=== PATIENT | male | born 1970 | race Caucasian/White ===

== ENCOUNTER 2023-12-12 14:21 | Emergency (ER) | payer OTHER, BC, SELFPAY ==
[2023-12-12] VITALS (12 sets, daily range): BP systolic 100–144; BP diastolic 68–107; PULSE 76–88; RESP 14–22; TEMP 36.1–36.7; O2SAT 95–98; BMI 27.7
--- NOTE | 2023-12-12 14:28 | CRLHL7_ITS ---
For Patients: As a result of the Century Cures Act, medical imaging exams and procedure reports are released immediately into your electronic medical record. You may view this report before your referring provider. If you have questions, please contact your health care provider. Indication: heavy beam fell on him ,trauma Technique: Right knee 2 views. Comparison: None. Impression: Small knee effusion. No evidence of fracture. Query mild lateral subluxation of patella. Recommend clinical correlation. Dictated by Burt Salas MD @ 12/12/2023 3:53:27 PM (Electronically Signed)
--- NOTE | 2023-12-12 14:28 | CRLHL7_ITS ---
For Patients: As a result of the Cures Act, medical imaging exams and procedure reports are released immediately into your electronic medical record. You may view this report before your referring provider. If you have questions, please contact your health care provider. Indication: heavy beam fell on him, trauma Technique: Right foot 3 views. Comparison: None. Findings: Bones: Alignment is normal. No fractures or bone lesions. Joint spaces: Unremarkable. Soft tissues: Unremarkable. Impression: No evidence of fracture. Dictated by Burt Salas MD @ 12/12/2023 3:56:36 PM (Electronically Signed)
--- NOTE | 2023-12-12 14:28 | CRLHL7_ITS ---
For Patients: As a result of the Century Cures Act, medical imaging exams and procedure reports are released immediately into your electronic medical record. You may view this report before your referring provider. If you have questions, please contact your health care provider. INDICATION: Trauma. TECHNIQUE: CT head without contrast. COMPARISON: None. FINDINGS: CSF spaces: Within normal limits for age. Brain parenchyma and extra-axial spaces: The jacinto-white differentiation is normal. No sign of mass, hemorrhage, or midline shift. No extra-axial fluid collection. Skull base and calvarium: The visualized paranasal sinuses and mastoid air cells demonstrate no acute or significant findings. The visualized orbits are grossly unremarkable. No skull fractures. IMPRESSION: No acute intracranial abnormality. Please note that all CT scans at this facility use dose modulation, iterative reconstruction, and/or weight-based dosing when appropriate to reduce radiation dose to as low as reasonably achievable. Dictated by Pecry Hernandez MD @ 12/12/2023 3:28:55 PM (Electronically Signed)
--- NOTE | 2023-12-12 14:28 | CRLHL7_ITS ---
For Patients: As a result of the Cures Act, medical imaging exams and procedure reports are released immediately into your electronic medical record. You may view this report before your referring provider. If you have questions, please contact your health care provider. Indication: heavy beam fell on him ,trauma Technique: Right hand 3 views. Comparison: None. Impression: Suboptimal evaluation of the mid and distal phalanges due to incomplete extension and superimposed osseous/soft tissue structures. Tiny radiopaque density projecting near the palmar aspect of the 3rd PIP joint which may represent a tiny avulsed fracture fragment or radiopaque foreign body. Otherwise, there is no discrete evidence of fracture given limitations. Dictated by Burt Salas MD @ 12/12/2023 3:59:47 PM (Electronically Signed)
--- NOTE | 2023-12-12 14:28 | CRLHL7_ITS ---
For Patients: As a result of the Century Cures Act, medical imaging exams and procedure reports are released immediately into your electronic medical record. You may view this report before your referring provider. If you have questions, please contact your health care provider. INDICATION: Heavy beam fell on him, trauma. TECHNIQUE: Right ankle 3 views. COMPARISON: None. FINDINGS: There is suboptimal positioning on all three views which limits evaluation. No definite acute fracture or dislocation. Small sclerotic lesion in the distal tibia likely represents a bone island. Achilles calcaneal spur. Soft tissues are unremarkable. IMPRESSION: Limited exam due to suboptimal positioning. No definite acute findings. Dictated by Shaina Bender MD @ 12/12/2023 5:34:20 PM (Electronically Signed)
--- NOTE | 2023-12-12 14:28 | CRLHL7_ITS ---
For Patients: As a result of the Cures Act, medical imaging exams and procedure reports are released immediately into your electronic medical record. You may view this report before your referring provider. If you have questions, please contact your health care provider. INDICATION: Trauma. TECHNIQUE: CT cervical spine without contrast. COMPARISON: None. FINDINGS: Vertebrae: Alignment is normal. There are no fractures or suspicious bony lesions. Discs and facet joints: There are diffuse degenerative changes in the disc spaces and facet joints. Extraspinal findings: Paraspinous soft tissues are unremarkable. IMPRESSION: 1. No sign of acute injury. 2. Multilevel degenerative spondylosis. Please note that all CT scans at this facility use dose modulation, iterative reconstruction, and/or weight-based dosing when appropriate to reduce radiation dose to as low as reasonably achievable. Dictated by Percy Hernandez MD @ 12/12/2023 3:32:33 PM (Electronically Signed)
--- NOTE | 2023-12-12 14:30 | CRLHL7_ITS ---
For Patients: As a result of the 21st Century Cures Act, medical imaging exams and procedure reports are released immediately into your electronic medical record. You may view this report before your referring provider. If you have questions, please contact your health care provider. Indication: Heavy beam fell on him Technique: Volumetric multidetector CT images of the chest, abdomen, and pelvis were obtained after the administration of intravenous contrast. 99 cc Isovue 370 low osmolar intravenous contrast Comparison: None available. FINDINGS: CHEST The thoracic inlet is unremarkable. The thyroid gland is within normal limits. The thoracic aorta is nonaneurysmal. There is no filling defect to suggest pulmonary embolus. There is no mediastinal, hilar, or axillary adenopathy. There is basilar atelectasis and parenchymal scar with moderate paraseptal emphysematous change within the upper lobes. There is no evidence of dense consolidation, pleural effusion or pneumothorax. There is a mildly comminuted fracture of the mid right clavicle. The remaining thoracic osseous structures are otherwise grossly intact. There is a mild compression fracture of the superior T12 endplate. The remaining thoracic vertebral bodies are grossly maintained. ABDOMEN AND PELVIS The liver is mildly enlarged with hepatomegaly and hepatic steatosis. Cystic changes of the right liver are identified. The spleen is normal in attenuation and size. There is prior cholecystectomy. There is no intrahepatic or common ductal dilatation. The stomach and duodenum are grossly unremarkable. The pancreas is normal in enhancement without significant atrophy. The adrenal glands are unremarkable without evidence of adenoma. The kidneys are preserved and corticomedullary differentiation. There is no hydronephrosis or radiopaque calculus. There is a moderate amount of intracolonic stool. There is minimal distal colonic diverticulosis. The small bowel is nondilated. The appendix is unremarkable without significant inflammatory change. The abdominal aorta is nonaneurysmal with its. The remaining solid pelvic viscera are otherwise grossly unremarkable. There is no pathologically enlarged epigastric, mesenteric, retroperitoneal, or pelvic sidewall lymph node. There is a small fat containing umbilical hernia. There is no free air or free fluid. There is fusion of the bilateral sacroiliac joints consistent with sacroiliitis. The femoral heads are well seated in the acetabula. No evidence of displaced pelvic osseous injury. The lumbar vertebral body heights are grossly maintained with [id number] degenerative disc disease. Impression: 1. There is basilar atelectasis and parenchymal scar with moderate biapical paraseptal emphysematous changes and pleural thickening. 2. Comminuted fracture of the right clavicle as well as mild compression fracture of the superior T12 endplate. No other acute traumatic injuries of the chest abdomen or pelvis are appreciated. 3. No acute intra-abdominal abnormality. Please note that all CT scans at this facility use dose modulation, iterative reconstruction, and/or weight-based dosing when appropriate to reduce radiation dose to as low as reasonably achievable. Dictated by Grayson Guillen MD @ 12/12/2023 3:34:15 PM (Electronically Signed)
--- NOTE | 2023-12-12 14:43 | ED_ITS ---
HPI - General Adult General Date Seen: 12/12/23 Chief complaint: Extremity Pain/Injury, Lower Stated complaint: R leg trauma Time Seen by Provider: 12/12/23 14:27 Source: patient and EMS Mode of arrival: EMS Limitations: no limitations History of Present Illness HPI narrative: Patient is a 53-year-old male with no pertinent medical problems presenting to emergency department after a large stable being fell on him. 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 Lateral the right leg causing fall backwards hitting his head. He was wearing his hard hat. Was given ketamine and fentanyl for pain and arrived. EMS states his vital signs were stable for them. He is the A&Ox4 with them also. This occurred while at work. Currently complaining about right knee pain and right clavicular pain. There is notable laceration to his right hand. He has also noticed some mild pain to the right hip, foot, ankle. Denies a headache or neck pain. denies fevers, chills, chest pain, shortness of breath, abdominal pain, vision changes, weakness. Related Data Home Medications Medication Instructions Recorded Confirmed No Known Home Medications 12/12/23 12/12/23 Allergies Allergy/AdvReac Type Severity Reaction Status Date / Time No Known Drug Allergies Allergy Verified 12/12/23 14:34 [facility] Social History Smoking Status: Current every day smoker What tobacco products do you use: cigarettes Smoking packs per day: 1.5 Smoking cigarettes per day: 30.0 Do you use any of these nicotine containing products: None Second hand tobacco smoke exposure: No How often do you have a drink containing alcohol: monthly or less AUDIT-C Alcohol total score: 1 Non-prescribed substance use: marijuana (any form) Non-prescribed substance use details: pt takes approx one cbd gummy at night for sleep service: No Exam Narrative: Exam Narrative: Const: Well-nourished, Well-developed, in moderate distress Eyes: PERRL, no conjunctival injection, and symmetrical lids HENT: Atraumatic external nose and ears. Moist mucous membranes. Neck: Symmetric, trachea midline, No thyromegaly. CVS: RRR, No murmurs or gallops. Peripheral pulses 2+ and equal in all extremities RESP: Unlabored respiratory effort. Clear to auscultation bilaterally. GI: Nontender/Nondistended, No rebound or guarding. MSK:Extremities w/o deformity, for decreased range of motion to right knee and ankle secondary to pain. Tenderness noted to midportion of right clavicle, right wrist, mild tenderness right hip a.m. foot, moderate tenderness to right knee and ankle. With no midline neck tenderness. No tenderness to chest wall, no midline spine tenderness Skin: Warm, Dry. Large laceration to the webspace between the thumb and index finger on right hand. Abrasion noted above right collarbone Neuro: Normal Muscle tone, No focal neurological deficits. GCS 15 Psych: Awake, Alert, & Oriented x3. Appropriate mood and affect. Const: Vital Signs, click to edit/add: Vital Signs - 24 hr 12/12/23 14:25 12/12/23 14:25 12/12/23 14:31 Temperature 97.0 F L Pulse Rate [Pulse Oximeter] 76 Pulse Rate [Right Pulse Oximeter] 79 78 Respiratory Rate 18 18 Blood Pressure [Ri ght Upper Arm] 129/82 107/68 Pulse Oximetry 96 95 [facility] Room Air 12/12/23 14:31 12/12/23 14:40 12/12/23 15:25 Temperature Pulse Rate [Pulse Oximeter] Pulse Rate [Right Pulse Oximeter] 77 78 82 Respiratory Rate 14 16 22 Blood Pressure [Ri ght Upper Arm] 125/82 110/84 134/95 H Pulse Oximetry 97 97 97 [facility] Room Air Room Air 12/12/23 16:40 12/12/23 17:00 12/12/23 17:30 Temperature Pulse Rate [Pulse Oximeter] Pulse Rate [Right Pulse Oximeter] 80 80 86 Respiratory Rate 18 19 17 Blood Pressure [Ri ght Upper Arm] 125/87 100/76 144/97 H Pulse Oximetry 97 97 97 Oxygen Delivery Ak [facility]od Room Air Room Air Room Air 12/12/23 18:00 12/12/23 18:30 12/12/23 20:00 Temperature Pulse Rate [Pulse Oximeter] Pulse Rate [Right Pulse Oximeter] 88 86 Respiratory Rate 17 16 Blood Pressure [Ri ght Upper Arm] 136/107 H 131/82 Pulse Oximetry 97 98 97 [facility] Room Air 12/12/23 21:28 12/12/23 21:31 Temperature 98.0 F 98.0 F Pulse Rate [Pulse Oximeter] Pulse Rate [Right Pulse Oximeter] 79 79 Respiratory Rate 16 16 Blood Pressure [Ri ght Upper Arm] 125/78 125/78 Pulse Oximetry 98 Oxygen Delivery Me thod Room Air Course Vital Signs Vital signs: Initial Vital Signs Pulse Rate 79 12/12/23 14:25 Pulse Rhythm Regular 12/12/23 14:25 Respiratory Rate 18 12/12/23 14:25 Respiratory Effort Normal, Spontaneous, Non-Labored 12/12/23 14:25 Respiratory Depth Normal 12/12/23 14:25 Respiratory Pattern Normal 12/12/23 14:25 Blood Pressure 129/82 12/12/23 14:25 Blood Pressure Mean 97 12/12/23 14:25 Blood Pressure Position Supine 12/12/23 14:25 Pulse Oximetry 96 12/12/23 14:25 Oxygen Delivery Method Room Air 12/12/23 14:25 Vital Signs Pulse Rate 79 12/12/23 14:25 Respiratory Rate 18 12/12/23 14:25 Blood Pressure 129/82 12/12/23 14:25 Pulse Oximetry 96 12/12/23 14:25 Oxygen Delivery Method Room Air 12/12/23 14:25 Temperature 98.0 F 12/12/23 21:31 Pulse Rate 79 12/12/23 21:31 Respiratory Rate 16 12/12/23 21:31 Blood Pressure 125/78 12/12/23 21:31 Pulse Oximetry 98 12/12/23 21:28 Oxygen Delivery Method Room Air 12/12/23 21:28 Medications Administered Medications: Discontinued Medications Generic Name Dose Route Start Last Admin Trade Name Adamq PRN Reason Stop Dose Admin Diphtheria/Tetanus/Acell Pertussis 0.5 ml 12/12/23 15:30 12/12/23 15:54 Tetanus/Diphth/Pertussis 0.5 Ml Syringe IM 12/12/23 15:31 0.5 ml .ONCE ONE Administration Hydromorphone HCl 0.5 mg 12/12/23 19:43 12/12/23 19:58 Hydromorphone 0.5 Mg/0.5 Ml Inj IVP 12/12/23 19:44 0.5 mg ONCE ONE Administration Lidocaine/Epinephrine 20 ml 12/12/23 17:10 12/12/23 17:34 Lidocaine 1%-Epi 1:100,000 20 Ml INFILTRATI 12/12/23 17:11 20 ml ONCE ONE Administration Morphine Sulfate 4 mg 12/12/23 16:43 12/12/23 16:52 Morphine 4 Mg/Ml Inj IVP 12/12/23 16:44 4 mg ONCE ONE Administration Morphine Sulfate 4 mg 12/12/23 19:14 12/12/23 19:20 Morphine 4 Mg/Ml Inj IVP 12/12/23 19:15 4 mg ONCE ONE Administration Nicotine 1 patch 12/12/23 15:30 12/12/23 15:56 Nicotine 14 Mg Patch TRANSDERMA 1 patch Q24H YULIA Administration Medical Decision Making MDM Narrative Medical decision making narrative: Patient is a 53-year-old male presenting to emergency department after a work accident. Due to the mechanism of action a TTA was called. Says he has not have any chest wall or abdominal tenderness but considering what happened we will order a chest abdomen and pelvis CT. Also ordered head and cervical spine CT. CBC and BMP ordered. He is having pain to his right knee, ankle, foot and x-rays were ordered. Large laceration to his right hand x-rays were ordered here to also Imaging shows a right clavicle midshaft fracture. There is no tenting at this time. He was more comfortable in the sling was also given a shoulder immobilizer. CT scan of the chest showed no acute abnormalities. CT of the cervical spine and head showed no acute abnormalities. CT scan of the chest abdomen pelvis showed this right clavicle fracture I spoke to our Orthopedics about a when told to follow up outpatient. Does show a T12 superior minimal compression fracture. He is having no pain at this site most his pain is around T4 region and the paraspinal region. I did speak to the on-call neurosurgeon at [facility] to see if he needs outpatient follow-up. I informed this provider that he is not having any pain at the site and they are wondering if it could be an old fracture. He does not think he needs follow-up with spinal surgery. He states that there any neurological deficits to get an MRI but there are no deficits at this time. X-rays all returned showing no obvious acute fractures. There is a possible right hand avulsion fracture versus foreign body that was not definitive. no foreign body was seen on my exam. His x-ray shows a possible insert subluxation of the patella to check clinically. Clinically speaking is no anterior knee pain and only has pain with movement at just distal to the knee and the posterior side in the gastrocnemius. Patient had his laceration sutured by myself. There is no clear sign of infection at this time but I will place him on antibiotics considering is a relatively dirty wound. His tetanus was updated. He had some difficulty ambulating due to the shoulder pain but we were able to discharge him home with outpatient follow-up. His leg pain was fine as long as he does not bend his leg so a knee immobilizer was placed which he tolerated well Lab Data Labs: Lab Results 12/12/23 Range/Units 14:36 WBC 9.17 (4.50-11.00) K/uL RBC 4.59 (4.30-5.90) m/uL Hgb 14.5 (13.5-17.5) gm/dL Hct 43.6 (37.0-53.0) % MCV 95 (80-100) fL MCH 32 (26-34) pg MCHC 33 (32-36) gm/dL RDW Coeff of Ross 11.7 (11.5-15.5) % Plt Count 194 (140-440) K/uL Neut % (Auto) 74.1 H (42.0-72.0) % Lymph % (Auto) 17.1 L (20-44) % Long % (Auto) 5.2 (0.0-11.0) % Eos % (Auto) 1.5 (0.0-7.0) % Baso % (Auto) 0.4 (0.0-3.0) % Neut # (Auto) 6.80 (1.7-7.0) K/uL Lymph # (Auto) 1.60 (0.90-2.90) K/uL Long # (Auto) 0.50 (0.00-0.90) K/UL Eos # (Auto) 0.14 (0.00-0.50) K/uL Baso # (Auto) 0.04 (0.00-0.30) K/uL Abs Immat Gran (auto) 0.16 (0.00-0.30) K/uL Imm/Tot Granulo (auto) 1.7 % Sodium 137 (135-149) mmol/L Potassium 3.7 (3.6-5.1) mmol/L Chloride 106 (96-114) mmol/L Carbon Dioxide 24 (20-32) mmol/L Anion Gap 7 (7-15) mEq/L BUN 16 (7-30) mg/dL Creatinine 1.1 (0.5-1.5) mg/dL Estimated Creat Clear 87.77 Estimated GFR 80 ml/min Glucose 131 H (60-115) mg/dL Calcium 8.6 (8.4-10.6) mg/dL Imaging Data CT scan head: Radiologist's impression: No acute intracranial abnormality. Please note that all CT scans at this facility use dose modulation, iterative reconstruction, and/or weight-based dosing when appropriate to reduce radiation dose to as low as reasonably achievable. Dictated by Percy Hernandez MD @ 12/12/2023 3:28:[address] scan cervical spine: Radiologist's impression: 1. No sign of acute injury. 2. Multilevel degenerative spondylosis. Please note that all CT scans at this facility use dose modulation, iterative reconstruction, and/or weight-based dosing when appropriate to reduce radiation dose to as low as reasonably achievable. Dictated by Percy Hernandez MD @ 12/12/2023 3:32:[address] Chest/Ab/Pelvis: Radiologist's impression: 1. There is basilar atelectasis and parenchymal scar with moderate biapical paraseptal emphysematous changes and pleural thickening. 2. Comminuted fracture of the right clavicle as well as mild compression fracture of the superior T12 endplate. No other acute traumatic injuries of the chest abdomen or pelvis are appreciated. 3. No acute intra-abdominal abnormality. Please note that all CT scans at this facility use dose modulation, iterative reconstruction, and/or weight-based dosing when appropriate to reduce radiation dose to as low as reasonably achievable. Dictated by Grayson Guillen MD @ 12/12/2023 3:34:15 PM X-ray right hand: Radiologist's impression: Suboptimal evaluation of the mid and distal phalanges due to incomplete extension and superimposed osseous/soft tissue structures. Tiny radiopaque density projecting near the palmar aspect of the 3rd PIP joint which may represent a tiny avulsed fracture fragment or radiopaque foreign body. Otherwise, there is no discrete evidence of fracture given limitations. Dictated by Burt Salas MD @ 12/12/2023 3:59:47 PM X-ray right knee: Radiologist's impression: Small knee effusion. No evidence of fracture. Query mild lateral subluxation of patella. Recommend clinical correlation. Dictated by Burt Salas MD @ 12/12/2023 3:53:27 PM X-ray right foot: Radiologist's impression: No evidence of fracture. Dictated by Burt Salas MD @ 12/12/2023 3:56:36 PM X-ray right ankle: Radiologist's impression: Limited exam due to suboptimal positioning. No definite acute findings. Dictated by Shaina Bender MD @ 12/12/2023 5:34:20 PM Discharge Plan Discharge Clinical Impression: Accidental laceration Acute knee pain Qualifiers: Laterality: right Qualified Code(s): M25.561 - Pain in right knee Clavicle fracture Qualifiers: Encounter type: initial encounter Clavicle location: shaft Fracture type: closed Fracture alignment: displaced Laterality: right Qualified Code(s): S42.021A - Displaced fracture of shaft of right clavicle, initial encounter for closed fracture Patient Disposition: Home, Self-Care Condition: Improved Instructions: Clavicle Fracture (DC) Additional Instructions: Follow-up with your primary care provider or urgent care in the next 7 days to have the 25 sutures removed. There are 12 in the palmar laceration, 10 in the webspace laceration, 3 on the back of the hand For next 6 months, once sutures are removed, whenever you go outside put a dab of sunscreen over the laceration site to improve scar appearance. Topical antibiotics are not necessary at this time. Patient can shower but do not submerge the laceration until sutures are removed. Take the Keflex as prescribed. Continue to wear either shoulder immobilizer or arm sling. Will use the knee i mmobilizer as needed for comfort. Take Tylenol and ibuprofen for pain. It does not working use the oxycodone. To schedule primary care follow-up call [phone] to set up an appointment. Prescriptions: No Action No Known Home Medications Follow Up/Referrals: Provider,Not a Local [Primary Care Provider] - Stand Alone [facility]: [facility] Procedures Laceration Palm: Name of person performing procedure: Tyrone Rivera Site: hand (Palm) Side (If applicable): right Size (cm): 7.5 Description: linear and contaminated Depth: simple, single layer Local Anesthetic: lidocaine 1% Amount of anesthesia used (mL): 3 Pre-repair: wound explored, irrigated extensively and deep structures intact Skin layer closed with: nylon Size (cm): 4-0 Number of sutures: 12 Technique: simple, interrupted Subcutaneous layer closed with: Vicryl Size: 4-0 Number of sutures: 2 Technique: simple, interrupted Web space between thumb and index: Name of person performing procedure: RaisedDigital Site: hand (Web space between thumb and index finger) Side (If applicable): right Size (cm): 6.5 Description: linear and contaminated Depth: simple, single layer Local Anesthetic: lidocaine 1% Amount of anesthesia used (mL): 3 Pre-repair: wound explored, irrigated extensively and deep structures intact Skin layer closed with: nylon Size (cm): 4-0 Number of sutures: 10 Technique: simple, interrupted back of hand: Name of person performing procedure: RaisedDigital Site: hand (back of hand) Side (If applicable): right Size (cm): 1.5 Description: linear Depth: simple, single layer Local Anesthetic: lidocaine 1% Amount of anesthesia used (mL): 1 Pre-repair: wound explored, irrigated extensively and deep structures intact Skin layer closed with: nylon Size (cm): 4-0 Number of sutures: 3
[2023-12-12 15:12] LABS: Basophils Absolute Auto 0.04 K/uL (0.00-0.30); Basophils Percent Auto 0.4 % (0.0-3.0); Eosinophils Absolute Auto 0.14 K/uL (0.00-0.50); Eosinophils Percent Auto 1.5 % (0.0-7.0); Hematocrit 43.6 % (37.0-53.0); Hemoglobin* 14.5 gm/dL (13.5-17.5); Immature Granulocytes Abs Auto 0.16 K/uL (0.00-0.30); Immature Granulocytes Pct Auto 1.7 %; Lymphocytes Percent Auto 17.1 % (20-44); Mean Corpuscular HGB Conc 33 gm/dL (32-36); Mean Corpuscular Hemoglobin 32 pg (26-34); Mean Corpuscular Volume 95 fL (80-100); Monocytes Percent Auto 5.2 % (0.0-11.0); Neutrophils Percent Auto 74.1 % (42.0-72.0); Platelet Count* 194 K/uL (140-440); RDW Coefficient of Variation % 11.7 % (11.5-15.5); Red Blood Count 4.59 m/uL (4.30-5.90); White Blood Count* 9.17 K/uL (4.50-11.00)
[2023-12-12 15:28] LABS: Slide Review Reflex No
[2023-12-12] MEDS: TETANUS/DIPHTH/PERTUSSIS 0.5 ML SYRINGE IM (15:54)
[2023-12-12] MEDS: NICOTINE 14 mg PATCH 1 PATCH TRANSDERMA (15:56)
[2023-12-12] MEDS: MORPHINE 4 MG/ML INJ IVP ×2 (16:52→19:20)
--- NOTE | 2023-12-12 17:06 | ED.NURSE ---
placed a sling on the right arm to sit in a 90 degree angle. patient is feeling much better after pain medication. rating 3/10 scale. is at the bedside along with son.
--- NOTE | 2023-12-12 17:36 | ED.NURSE ---
Dr. Rivera placed a local in the right hand and Lukas alba called for consult.
[2023-12-12 17:38] LABS: Chloride* 106 mmol/L (96-114); Potassium* 3.7 mmol/L (3.6-5.1); Sodium* 137 mmol/L (135-149)
[2023-12-12 17:41] LABS: Anion Gap 7 mEq/L (7-15); Carbon Dioxide* 24 mmol/L (20-32); Creatinine* 1.1 mg/dL (0.5-1.5); Est. Creatinine Clearance* 87.77; Estimated Glomerular Filt Rate 80 ml/min
[2023-12-12 17:42] LABS: Blood Urea Nitrogen* 16 mg/dL (7-30); Calcium* 8.6 mg/dL (8.4-10.6); Glucose* 131 mg/dL (60-115)
--- NOTE | 2023-12-12 17:47 | ED.NURSE ---
laceration repair done and cleaning up to wounds.
--- NOTE | 2023-12-12 18:37 | ED.NURSE ---
Sutures are in and cleaned right hand up and dressing on. patient wants to try shoulder immobilizer on instead of the sling.
--- NOTE | 2023-12-12 19:43 | ED.NURSE ---
taken patient up to the bathroom via wc and wanted help to get to the chair as pulled light. looking pale, diaphoretic, and wants to lay back down. having a lot of pain in right shoulder. Informed Dr. Rivera of patient wants to be admitted to hospital.
[2023-12-12] MEDS: HYDROmorphone 0.5 mg/0.5 ml inj IVP (19:58)
--- NOTE | 2023-12-12 20:00 | ED.NURSE ---
removed the nicotine patch on the left upper chest as wants to go out and smoke. given Dilaudid 0.5mg IM in the left deltoid as verbally changed by Dr. Miguel ken with this route.
== END 2023-12-12 21:32 | disposition home or self-care (01) ==
PROVIDERS: Emergency Provider Student in an Organized Health Care Education/Training Program
DX: S42.009A Fracture of unspecified part of unspecified clavicle, initial encounter for closed fracture (principal); S61.411A Laceration without foreign body of right hand, initial encounter; S61.011A Laceration without foreign body of right thumb without damage to nail, initial encounter; W20.8XXA Other cause of strike by thrown, projected or falling object, initial encounter
CPT/HCPCS: 12005; 36415; 70450; 71260; 72125; 73130; 73560; 73610; 73630; 74177; 80048; 85025; 90471; 90715; 94761; 96374; 96375; 99284; 99291; G0390; J1170; J2270; Q9967; S4990

== ENCOUNTER 2023-12-27 06:14 | Day surgery (SDC) | payer OTHER, BC, SELFPAY ==
[2023-12-27] VITALS (11 sets, daily range): BP systolic 110–160; BP diastolic 76–101; PULSE 70–95; RESP 16; TEMP 36.1–36.5; O2SAT 95–96
--- OUTSIDE RECORDS SUMMARY | 2023-12-27 06:18 | XMS_ITS | Clinical Summary ---
Author Name Unknown Organization [facility] Address [place], [place] [address] Care Team Providers Care Cloud Security Architect Name Role Phone [facility], [facility] Pro vider Allergies No known active allergies Medications Medication Sig Dispensed Refills Start Date End Date Status tamsulosin (FLOMAX) 0.4 mg capsuleIndications:N ephrolithiasis Take 1 Capsule (0.4 mg) by mouth once daily after a meal. 20 Capsule 0 05/28/2022 Active Active Problems Problem Noted Date Diagnosed Date Smoker 12/25/2023 BALDEV (acute kidney injury) 05/30/2022 Nephrolithiasis 05/29/2022 Hydronephrosis 05/29/2022 Tobacco use disorder 09/16/2009 Calcium nephrolithiasis Overview: passed 09/30, ureteroscopic surgery 06/2012 Resolved Problems Problem Noted Date Diagnosed Date Resolved Date BALDEV (acute kidney injury) 05/29/2022 Asthma 05/29/2022 06/10/2022 Hydronephrosis, left 06/29/2012 022 Emesis - persistent 06/29/2012 06/10/20 22 Acute left flank pain 06/29/20122021 Encounters Date Type Department Care Team Description 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 Preop Visit [facility] [address] [place] [address] Naif Mckeon PA Pre-Op Exam (06/12) 12/25/2023 Travel from Last 3 Months Immunizations Name Administration Dates Next Due Td (Age >=7 Years) 05/07/1986 Tdap 12/12/2023,04/29/2014 Family History Medical History Relation Name Comments No Known Problems Brother x 3 Good Health Daughter Cancer Father lung, brain Diabetes Father Stroke Maternal Grandmother Cancer-breast Mother Heart Disease Mother pacemaker Cancer Paternal Grandmother Good Health Son Anesthesia Problem No Family History Relation Name Status Comments Brother x 3 Alive Daughter Alive Father Maternal Grandfather Maternal Grandmother Mother Alive Paternal Grandfather Paternal Grandmother Son Alive Social History Tobacco Use Types Packs/Day Years Used Date Smoking Tobacco: Every Day Cigarettes 1 42 Smokeless Tobacco: Never Tobacco Cessation:Ready to Q uit: No; Counseling Given: Not Answered Comments:Strongly advised to quit to avoid incr bladder cancer risk, impotence, heart/vascular disease. Will order cessation program consult Alcohol Use Standard Drinks/Week Comments No 0 (1 standard drink = 0.6 oz pur e alcohol) Social Connections Answer Date Recorded Frequency of Communication with Friends and Fami ly 0 12/25/2023 Financial Resource Strain Answer Date R ecorded Difficulty of Paying Living Expenses 3 12/25/2023 Difficulty of Paying Living Expenses Not on file 12/25/2023 Food Insecurity Answer Date Recorded Worried About Running Out of Food in the Last Ye ar 1 12/25/2023 Transportation Needs Answer Date Record ed Lack of Transportation (Medical) 1 12/25/2023 Sex and Gender Information Value Date Recorded Sex Assigned at Not on file Gender Identity Not on file Sexual Orientation Not on file Obstetrics History Last Filed Vital Signs Vital Sign Reading Time Taken Comments Blood Pressure 124/70 12/25/2023 8:56 AM SHEET IRONWORKER Pulse 97 06/10/2022 10:31 AM CDT Temperature 36.8 ??C (98.2 ??F) 05/30/2022 9:45 PM CD T Respiratory Rate 18 05/30/2022 9:45 PM CDT Oxygen Saturation 97% 06/10/2022 10:31 AM CDT Inhaled Oxygen Concentration - - Weight 92.5 kg (204 lb) 12/25/2023 8:56 AM SHEET IRONWORKER Height 183.5 cm (6' 0.25) 12/25/2023 8:56 AM CS T Body Mass Index 27.48 12/25/2023 8:56 AM SHEET IRONWORKER Plan of Treatment Health Maintenance Due Date Last Done Comments COVID-19 vaccine series (#1) 1970 Pneumococcal series for age 6-64 (1 of 2 - PCV) 02/07/1976 Hepatitis C screening for age 18-79 02/07/1988 Colonoscopy through age 75 2015 Depression screening for age 12+ 03/31/2018 03/31/20 17 Zoster (shingles) series for age 50+ (1 of 2) 02/07/2020 Influenza for age 50-64 07/21/2023 BMI (ht and wt on same day) for age 18+ 12/25/2024 12/25/2023, 06/10/2022, 03/31/2017 Lipids for age 45-75 03/17/2026 03/17/2021 Tetanus booster 12/12/2033 12/12/2023, 04/20, 05/07/1986 HIV for age 15-65 Completed 12/24/2013 Tdap Completed 12/12/2023, 04/29/2014 Medical Devices Implanted Type Area Addiction Nurse Device Identifier Shelf Expiration Date Model / Serial / Lot Stent Contour [id number] - [id number] Implanted:Qty: 1 on 06/29/2012 at [facility] Left: [employer] [facility] [id number] / / [id number] Stent Uret [id number] Percuflex Hydroplus - [id number] Implanted:Qty: 1 on 05/30/2022 by Kelly Keys MD at [facility] Right: [employer] [facility] 02/04/2025 [id number] / / [id number] Advance Directives Latest Code Status on File Code Status Date Activated Date Inactivated Comments Full Code 05/29/2022 11:20 PM 05/31/2022 1:25 AM Question Answer Comments Code Status Discussion: Reviewed Preferences Code Status History Code Status Date Activated Date Inactivated Comments Full Code 12/19/2015 1:28 PM 12/19/2015 7:52 PM Care Teams Cloud Security Architect Relationship Specialty Start Date End Date Clinic, [address] [address] PCP - General 05/29/22
[2023-12-27] MEDS: LACTATED RINGERS 1000 ML 1,000 ML 100 ML IV ×2 (06:56→09:33)
[2023-12-27] MEDS: SODIUM CHLORIDE 0.9 % (FLUSH) 10 ML SYRINGE IVF (06:56)
--- NOTE | 2023-12-27 07:13 | W.PM.H&PU ---
History & Physical Update History & Physical Update H&P Reviewed and patient assessed: No changes noted
[2023-12-27] MEDS: CEFAZOLIN 2 GM INJ IVP (07:42)
--- NOTE | 2023-12-27 07:43 | W.ANESCHARGE ---
Anesthesia Charges Start Date/Time Anesthesia Start Date: 12/27/23 Anesthesia Start Time: 07:23 Stop Date/Time Anesthesia Stop Date: 12/27/23 Anesthesia Stop Time: 09:33
--- NOTE | 2023-12-27 07:45 | CRLHL7_ITS ---
For Patients: As a result of the Cures Act, medical imaging exams and procedure reports are released immediately into your electronic medical record. You may view this report before your referring provider. If you have questions, please contact your health care provider. Indication: RIGHT CLAVICLE ORIF Technique: Two fluoroscopic images of the right clavicle. Fluoroscopic time 4.8 seconds. IMPRESSION: Fluoroscopic guidance for open reduction internal fixation right clavicular fracture. Dictated by Josh Cui MD @ 12/27/2023 10:06:10 AM (Electronically Signed)
[2023-12-27] MEDS: LIDOCAINE 0.5%-EPI 1:200,000 50 ML VIAL INJECTION (09:00)
[2023-12-27] MEDS: BUPIVACAINE 0.5% 30 ML 5 ML INJECTION (09:00)
--- NOTE | 2023-12-27 09:10 | P.ORPRC_ITS ---
Procedure Note Date of procedure: 12/27/23 Procedure: PREOPERATIVE DIAGNOSES: 1. Right midshaft clavicle fracture with 120+ percent displacement, comminution, and significant shortening 2. Tobacco use 3. Retained nylon sutures right thenar eminence and 1st webspace hand POSTOPERATIVE DIAGNOSES: 1. Right midshaft clavicle fracture with 120+ percent displacement, comminution, and significant shortening 2. Tobacco use 3. Retained nylon sutures right thenar eminence and 1st webspace hand NAME OF OPERATION: 1. Right clavicle open reduction and internal fixation 2. 26115 - intraoperative fluoroscopy up to 1 hour. 3. Suture removal right hand thenar eminence and 1st webspace SURGEON: Familia Williamson MD MEDICAL TRANSCRIBER: Ernesto ENCARNACION - Of note, an commercial assistant was critical for this case to aide in patient positioning, limb manipulation, tissue retraction, awareness of and protection of critical structures, closure, and immobilization application. ANESTHESIA: General EBL: 50ml IMPLANTS: Arthrex clavicle plate with 3.5 mm nonlocking and locking screws and multiple 2.7/2.5 mm interfragmentary screws placement. TOURNIQUET: None. INDICATIONS: The patient is a pleasant 53-year-old male. This sustained a work related injury approximately 2 weeks ago. A large boom fell onto the right clavicle and split his right hands 1st webspace into the thenar eminence. He also sustained right knee injury. Again work-related injury FINDINGS: Close, primarily transverse but comminuted right midshaft clavicle fracture with significant displacement, shortening, comminution in a tobacco smoking individual from work related injury. Some early callus it started to form. PROCEDURE: Following a thorough discussion of risks, benefits, and alternatives, consent was obtained and the operative extremity was marked. The patient was brought to the operating room and placed supine on the operating table. Induction of anesthesia was achieved. Appropriate time out was performed identifying proper patient, site and procedure. 2 g IV Ancef was administered within 1 hour of incision preoperatively. The right upper extremity was prepped and draped in the appropriate sterile fashion using ChloraPrep. The skin was anesthetized with 0.5% Marcaine plain and 2% lidocaine with epinephrine for both local anesthesia and hemostasis. Following this, sharp dissection through skin allowed evaluation of crossing neurologic structures. The periosteum was released, and subperiosteal elevation performed. The fracture ends were cleared of interposed muscle and fracture hematoma. The 2 ends were grasped with a lobster claw to help gain length. There was a small cortical fragment that had no soft tissue attachment and was loose and had to be excised. This measured approximately 5 x 8 mm. The more sizable butterfly fragment was mobilized and reduced temporarily and fixed with an interfragmentary screw with excellent purchase. Excellent reduction was achieved. A 9 hole plate was selected, contoured, and applied to the bone. Cortical nonlocking compression screws were placed on the distal side of the fracture initially followed by manual compression on the more proximal side. After confirming proper reduction on C-arm fluoroscopic imaging, a 2nd and 3rd locking screw was placed on either side of the fracture. Again C-arm was utilized to confirm proper screw length, fracture reduction, and plate apposition. At this stage, the wound was thoroughly irrigated with normal saline. Closure performed with 0 stratafix for the periosteum/platysma. Closure was then completed with 2-0 Vicryl for the subcutaneous, and 4-0 Monocryl for subcuticular closure. Dressings were applied along with a sling. The patient was awoken from anesthesia and transferred to PACU in stable condition. Of note, after the clavicle surgery, and the dressings were removed, we turned our attention to the right hand. The remaining nylon sutures removed. Steri- Strips that were old were removed and new ones applied. PLAN: 1. Nonweightbearing operative extremity. 2. Ice, acetominphen or ibuprofen PRN. 3. Oxycodone for pain as needed. 4. Follow up with PA visit in 10-16 days for wound check of both the right clavicle and right hand.
[2023-12-27] MEDS: fentaNYL 100 MCG/2 ML inj IVP (10:01)
[2023-12-27] MEDS: fentaNYL 100 MCG/2 ML inj 50 MCG IVP (10:02)
[2023-12-27] MEDS: OxyCODONE/APAP 5-325 TABLET PO (10:45)
== END 2023-12-27 11:39 | disposition home or self-care (01) ==
PROVIDERS: Visit Provider Orthopaedic Surgery Sports Medicine
PROC: (CPT 23515; principal; 2023-12-27 07:45)
DX: S42.021A Displaced fracture of shaft of right clavicle, initial encounter for closed fracture (principal)
CPT/HCPCS: 23515; 00450; 73000; 76000; A9270; C1713; J0330; J0665; J0690; J1100; J1170; J2250; J2405; J2704; J2710; J3010; J3490; J7120

== ENCOUNTER 2024-03-11 10:45 | Outpatient (RCR) | payer OTHER, SELFPAY | END 2024-03-11 13:34 | disposition home or self-care (01) | PROVIDERS: Visit Provider Physician Assistant Surgical | DX: S42.001A Fracture of unspecified part of right clavicle, initial encounter for closed fracture (principal); S61.411A Laceration without foreign body of right hand, initial encounter; M25.511 Pain in right shoulder; M62.81 Muscle weakness (generalized); Z74.09 Other reduced mobility; Z51.89 Encounter for other specified aftercare | CPT/HCPCS: 97035; 97110; 97140; 97161; 97165; 97535; X5282 ==

== ENCOUNTER 2024-04-09 13:04 | Emergency (ER) | payer OTHER, BC, SELFPAY ==
[2024-04-09 13:07] VITALS: BP 166/98; PULSE 91; RESP 16; TEMP 36.3; O2SAT 96; BMI 28.4
--- NOTE | 2024-04-09 13:28 | CT_ITS ---
Patient: IVONE ALFONSO Facility:?[facility] Patient ID:?[id number] Site Patient ID:?[id number]. Site :?1970 Study:?CT-Head WITHOUT-04/09/2024 1:58:38 PM Ordering Physician:CONSTANTIN Final Report: INDICATION: Confusion and loss of words since head injury 4 months prior. TECHNIQUE: CT head without contrast. COMPARISON: None. FINDINGS: CSF spaces: Within normal limits for age. Brain parenchyma: The jacinto-white differentiation is normal. No sign of mass, hemorrhage, or midline shift. Skull base and calvarium: The visualized paranasal sinuses and mastoid air cells demonstrate no acute or significant findings. The visualized orbits are grossly unremarkable. No skull fractures. IMPRESSION: Unremarkable noncontrast head CT. Please note that all CT scans at this facility use dose modulation, iterative reconstruction, and/or weight-based dosing when appropriate to reduce radiation dose to as low as reasonably achievable. Dictated by Kota Bro MD @ 04/09/2024 2:06:25 PM Signed by:?Kota Bro MD @04/09/2024 2:06:25 PM (Electronic Signature)
[2024-04-09] MEDS: 0.9 % SODIUM CHLORIDE 500 ML 500 ML IV (13:42)
--- NOTE | 2024-04-09 13:45 | MR_ITS ---
Patient: IVONE ALFONSO Facility:?[facility] Patient ID:?[id number] Site Patient ID:?[id number] Site :?1970 Study:?MRI-Head WO-04/09/2024 3:04:00 PM Ordering Physician:CONSTANTIN Final Report: INDICATION: Seizures. TECHNIQUE: Brain MRI without contrast. COMPARISON: Head CT from 04/09/2024. FINDINGS: No evidence of acute ischemia. No evidence of acute or chronic intracranial blood products. No pathologic intracranial signal abnormality. No mass effect or herniation. No hydrocephalus or extra-axial collections. The pituitary gland, parasellar structures and optic chiasm are normal. Posterior fossa is normal. All the major intracranial vascular structures demonstrate normal flow-related signal. The orbital contents are normal. No calvarial or skull base marrow replacing process. No obstructive sinus disease. No extracranial soft tissue findings. IMPRESSION: 1. No significant intracranial abnormality. Dictated by Timbo Otero MD @ 04/09/2024 3:10:14 PM Signed by:?Timbo Otero MD @04/09/2024 3:10:14 PM (Electronic Signature)
[2024-04-09 13:48] LABS: Basophils Absolute Auto 0.02 K/uL (0.00-0.30); Basophils Percent Auto 0.3 % (0.0-3.0); Eosinophils Absolute Auto 0.14 K/uL (0.00-0.50); Eosinophils Percent Auto 2.1 % (0.0-7.0); Hematocrit 49.5 % (37.0-53.0); Hemoglobin* 16.7 gm/dL (13.5-17.5); Immature Granulocytes Abs Auto 0.01 K/uL (0.00-0.30); Immature Granulocytes Pct Auto 0.1 %; Lymphocytes Absolute Auto 1.62 K/uL (0.90-2.90); Lymphocytes Percent Auto 24.2 % (20-44); Mean Corpuscular HGB Conc 34 gm/dL (32-36); Mean Corpuscular Hemoglobin 32 pg (26-34); Mean Corpuscular Volume 93 fL (80-100); Monocytes Percent Auto 8.4 % (0.0-11.0); Neutrophils Absolute Auto 4.35 K/uL (1.7-7.0); Neutrophils Percent Auto 64.9 % (42.0-72.0); Platelet Count* 221 K/uL (140-440); RDW Coefficient of Variation % 11.7 % (11.5-15.5)
[2024-04-09] MEDS: levETIRAcetam 500 MG TABLET 1500 MG PO (13:56)
[2024-04-09 14:01] LABS: Albumin* 4.8 g/dL (3.3-5.0); Chloride* 108 mmol/L (96-114); Sodium* 139 mmol/L (135-149)
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
[2024-04-09 14:02] LABS: Potassium* 3.9 mmol/L (3.6-5.1)
[2024-04-09 14:04] LABS: Anion Gap 7 mEq/L (7-15); Carbon Dioxide* 24 mmol/L (20-32); Creatinine* 1.1 mg/dL (0.5-1.5); Est. Creatinine Clearance* 86.76; Estimated Glomerular Filt Rate 80 ml/min
[2024-04-09 14:05] LABS: Alanine Aminotransferase* 36 U/L (4-50); Alkaline Phosphatase* 82 U/L (40-150); Aspartate Amino Transferase* 30 U/L (12-35); Bilirubin Direct* 0.4 mg/dL (0.0-0.5); Bilirubin Total* 0.7 mg/dL (0.1-1.5); Blood Urea Nitrogen* 14 mg/dL (7-30); Calcium* 9.5 mg/dL (8.4-10.6); Glucose* 107 mg/dL (60-115); Total Protein* 7.6 g/dL (6.0-8.3)
[2024-04-09 14:06] LABS: Magnesium* 2.1 mg/dL (1.5-2.6)
[2024-04-09 14:07] LABS: Slide Review Reflex No
[2024-04-09 14:08] LABS: C Reactive Protein* 0.7 mg/dL (0.5-1.0)
--- OUTSIDE RECORDS SUMMARY | 2024-04-09 14:17 | XMS_ITS | Clinical Summary ---
Author Name Unknown Organization [facility] Address [place], [place] [address] Care Team Providers Care Pattern Data Operator Name Role Phone Clinic, [facility] Primary [facility] Pro vider Allergies No known active allergies Medications Medication Sig Dispensed Refills Start Date End Date Status tamsulosin (FLOMAX) 0.4 mg capsuleIndications:N ephrolithiasis Take 1 Capsule (0.4 mg) by mouth once daily after a meal. 20 Capsule 05/28/2022 Active Active Problems Problem Noted Date [...] 06/10/20 22 Acute left flank pain 06/29/20122021 Immunizations Name Administration Dates Next Due Td [...] Comments Blood Pressure 124/70 12/25/2023 8:56 AM COAT FELLER Pulse 97 06/10/2022 10:31 AM CDT Temperature 36.8 ??C (98.2 ??F) 05/30/2022 9:45 PM CD T Respiratory Rate 18 05/30/2022 9:45 PM CDT Oxygen Saturation 97% 06/10/2022 10:31 AM CDT Inhaled Oxygen Concentration - - Weight 92.5 kg (204 lb) 12/25/2023 8:56 AM COAT FELLER Height 183.5 cm (6' 0.25) 12/25/2023 8:56 AM CS T Body Mass Index 27.48 12/25/2023 8:56 AM COAT FELLER Plan of Treatment Health Maintenance Due Date Last Done Comments Pneumococcal series for age 6-64 (1 of 2 - PCV) 02/07/1976 Hepatitis C screening for age 18-79 02/07/1988 Colonoscopy through age 75 2015 Depression screening for age 12+ 03/31/2018 03/31/20 17 Zoster (shingles) series for age 50+ (1 of 2) 02/07/2020 COVID-19 vaccine series (2022- season) 2023 Influenza for age 50-64 07/21/2024 BMI (ht and wt on same day) for age 18+ 12/25/2024 12/25/2023, 06/10/2022, 03/31/2017 Lipids for age 45-75 03/17/2026 03/17/2021 Tetanus booster 12/12/2033 12/12/2023, 04/20, 05/07/1986 HIV for age 15-65 Completed 12/24/2013 Tdap Completed 12/12/2023, 04/29/2014 Medical Devices Implanted Type Area Traffic Sign Supervisor Device Identifier Shelf Expiration Date Model / Serial / Lot Stent Contour [id number] - [id number] Implanted:Qty: 1 on 06/29/2012 at [facility] Left: [employer] [facility] [id number] / / [id number] Stent Uret [id number] P[employer] - [id number] Implanted:Qty: 1 on 05/30/2022 by Kelly Keys MD at [facility] Right: [employer] [facility] 02/04/2025 [id number] / / [id number] Procedures Procedure Name Priority Date/Time Associated Diagnosis Comments LIPID PANEL W REFLEX MEASURED LDL Routine 03/17/2021 10:34 AM CDT Screening cholesterol level ANTI HIV 1/2 Routine 12/24/2013 11:59 AM COAT FELLER Oral thrush from Last 3 Months or Most Recently Relevant to Health Maintenance Results * (ABNORMAL) LIPID PANEL W REFLEX MEASURED LDL (03/17/2021 10:34 AM CDT) CHOLESTEROL,TOTAL 203(H) 100 - 199 mg/dL 03/17/2021 11:29 AM CDT [facility] TRIGLYCERIDES 200(H) <150 mg/dL 03/17/2021 11:29 AM CDT [facility] HDL CHOLESTEROL 47 >40 mg/dL 11:29 AM CDT [facility] NON-HDL CHOLESTEROL 156(H) <145 mg/dl 03/17/2021 11:29 AM CDT [facility] CHOL/HDL RATIO 4.32 <4.50 03/17/2021 11:29 AM CDT [facility] LDL CHOLESTEROL 116 <=130 mg/dL 03/17/2021 11:29 AM CDT [facility] VLDL CHOLESTEROL 40 mg/dL 03/17/20 11:29 AM CDT [facility] PROVIDER ORDERED STATUS RANDOM 03/17/2021 11:29 AM CDT [facility] Blood BLOOD SPECIMEN / Unknown Venipuncture / Unknown 03/17/2021 10:34 AM CDT 03/17/2021 10:36 AM CDT [facility] [address] [place] [address] * ANTI HIV 1/2 (12/24/2013 11:59 AM COAT FELLER) ANTI HIV 1/2 Non-reacti ve [facility] Blood specimen (specimen) BLOOD SPECIMEN / Unknown 12/24/2013 11:59 AM COAT FELLER 12/24/2013 11:49 AM COAT FELLER [facility] [place]NAL ZIP [id number] [place] [phone] from Last 3 Months or Most Recently Relevant to Health Maintenance Advance Directives * Full Code (Latest Code Status on File) Date Activated Date Inactivated Comments 05/29/2022 11:20 PM 05/31/2022 1:25 AM Question Answer Comments Code Status Discussion: Reviewed Preferences * Full Code Date Activated Date Inactivated Comments 12/19/2015 1:28 PM 12/19/2015 7:52 PM Care Teams Pattern Data Operator Relationship Specialty Start Date End Date [facility], [address] [address] PCP - General 05/29/22
[2024-04-09 14:55] LABS: Erythrocyte SedimentationRate* 2 mm/hr (2-15)
== END 2024-04-09 15:40 | disposition home or self-care (01) ==
PROVIDERS: Emergency Provider Emergency Medicine
DX: R56.9 Unspecified convulsions (principal)
CPT/HCPCS: 36415; 70450; 70551; 80048; 80076; 83735; 85025; 85651; 86140; 99284; A9270; J7030

== ENCOUNTER 2024-06-26 13:16 | Outpatient (CLI) | payer OTHER, BC, SELFPAY ==
[2024-06-26 14:37] LABS: Hematocrit 46.9 % (37.0-53.0); Hemoglobin* 15.8 gm/dL (13.5-17.5); Mean Corpuscular HGB Conc 34 gm/dL (32-36); Mean Corpuscular Hemoglobin 32 pg (26-34); Mean Corpuscular Volume 95 fL (80-100); Platelet Count* 199 K/uL (140-440); Red Blood Count 4.95 m/uL (4.30-5.90)
[2024-06-26 14:38] LABS: Slide Review Reflex No
[2024-06-26 15:24] LABS: Albumin* 4.2 g/dL (3.3-5.0)
[2024-06-26 15:27] LABS: Alanine Aminotransferase* 32 U/L (4-50); Alkaline Phosphatase* 77 U/L (40-150); Aspartate Amino Transferase* 28 U/L (12-35); Bilirubin Direct* 0.4 mg/dL (0.0-0.5); Bilirubin Total* 0.5 mg/dL (0.1-1.5); Blood Urea Nitrogen* 16 mg/dL (7-30); Creatinine* 1.2 mg/dL (0.5-1.5); Estimated Glomerular Filt Rate 72 ml/min; Total Protein* 6.5 g/dL (6.0-8.3)
[2024-06-29 09:33] LABS: Keppra (Levetiracetam) 16 ug/mL (10-40)
== END 2024-06-26 13:17 | disposition home or self-care (01) ==
LOC: LAB 13:17
PROVIDERS: Visit Provider Psychiatry & Neurology Clinical Neurophysiology
DX: Z79.899 Other long term (current) drug therapy (principal)
CPT/HCPCS: 36415; 73721; 80076; 80177; 82565; 84520; 85027

== ENCOUNTER 2024-09-09 12:45 | Outpatient (RCR) | payer OTHER, BC, SELFPAY ==
--- NOTE | 2024-07-24 15:32 | OT.OPOE ---
OT Outpatient Ortho Eval OT Outpatient Ortho Eval* Start: 07/24/24 10:00 Freq: Status: Active Protocol: Document 07/24/24 10:01 SNEHAMarcia (Rec: 07/24/24 15:00 DONNY [id number]) E-signed By Lyudmila Higginbotham, OTR/L, CLT OT OP Ortho Eval Details Complexity Complexity Medium Insurance Information Insurance Information Workman's Comp Outpatient History/Precautions Current Condition/Medical Diagnosis Referring Provider Dr. Familia Williamson Medical Diagnoses R29.898 - Other symptoms and signs involving the musculoskeletal system, & S61.411D - Laceration without foreign body of right hand, subsequent encounter Treatment Diagnosis R elbow pain, M25.521 Localized edema R60.0 Muscle Weakness, M62.81 Date of Onset DOI: 12/12/2023 Other Conditions Weakness of right lower extremity (Acute) R29.898 - Other symptoms and signs involving the musculoskeletal system (ICD-10 ) Right hand weakness (Acute) R29.898 - Other symptoms and signs involving the musculoskeletal system (ICD-10 ) Seizure (Acute) R56.9 - Unspecified convulsions (ICD-10) History of open reduction and internal fixation (ORIF) procedure (Acute 12/27/23) right clavicle open reduction and internal fixation. (2023 Dr. Williamson) Z98.890 - Other specified postprocedural states (ICD-10) Tobacco use (Acute) half a pack a day Z72.0 - Tobacco use (ICD-10) Osteoarthritis of right knee ( Acute) mild M17.11 - Unilateral primary osteoarthritis, right knee ( ICD-10) Synovitis of right knee (Acute ) Small knee joint effusion with synovitis and a small popliteal (Rg's) cyst that has ruptured posteriorly M65.9 - Synovitis and tenosynovitis, unspecified ( ICD-10) Strain of right gastrocnemius muscle (Acute) Mild grade 1 strains of the proximal medial & lateral gastrocnemius muscle bellies, without tear S86.111A - Strain of other muscle(s) and tendon(s) of posterior muscle group at lower leg level, right leg, initial encounter (ICD-10) Injury of right plantaris muscle or tendon (Acute) Mild grade 2 strain of the proximal plantaris muscle belly with very mild partial- thickness tearing S86.801A - Unspecified injury of other muscle(s) and tendon( s) at lower leg level, right leg, initial encounter (ICD-10 ) Acute medial meniscus tear of right knee (Acute) Apical free edge and undersurface tearing of the posterior horn and body of the medial meniscus with extrusion and flap fragment S83.241A - Other tear of medial meniscus, current injury, right knee, initial encounter (ICD-10) Closed fracture of lateral portion of tibial plateau ( Acute) Nondisplaced subchondral fracture of the anterolateral aspect of the lateral tibial plateau measuring 8 x 12 mm, with additional contusions involving the inferior pole of the patella, anterior aspect of the distal femoral metaphysis, and focally within the tip of the fibular head. S82.123A - Displaced fracture of lateral condyle of unspecified tibia, initial encounter for closed fracture (ICD-10) T12 compression fracture ( Acute) mild compression fracture of the superior T12 endplate S22.080A - Wedge compression fracture of T11-T12 vertebra, initial encounter for closed fracture (ICD-10) Tear of right hamstring (Acute ) S76.311A - Strain of muscle, fascia and tendon of the posterior muscle group at thigh level, right thigh, initial encounter (ICD-10) Encounter related to worker's compensation claim (Acute) DOI: 12/12/2023 (right clavicle , right hand/thumb, right knee ) Z02.6 - Encounter for examination for insurance purposes (ICD-10) Laceration of right hand ( Acute) S61.411A - Laceration without foreign body of right hand, initial encounter (ICD-10) Medical/Functional History Medical History Reviewed Yes Prior Level of Function/Mobility 7am -4:30 pm are patient's normal working hours, he is currently not on any work restrictions but is not driving now. 08/06/24 Patient has f/u with Neurologist to see if he can be released to drive again. Needs to be 3 months (90 days) without a seizure. 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 He was wearing his hard hat. Since DOI, patient has undergone surgery on 12/27/23: Right clavicle open reduction and internal fixation. Possible he may undergo a knee surgery: right knee arthroscopic partial medial meniscectomy but currently working with PT on a conservative (nonoperative approach) which has been working. At times, patient still can experience knee pain , with LE fatigue after walking/standing all day at work. Of note: Regarding the head, he was still having seizure intermittently. He was seen in the emergency room where a CT and MRI of the brain were done and resulted to be relatively normal. His seizures present as he gets disoriented and confused. He has no recollection of the seizures. The witnesses of the seizures state they last 20- 30 seconds and he stutters and convulses. He is set to see a Neurologist on June 06, 2024 at [facility]. His last seizure was 05/11/2024 . The emergency room placed him on Keppra to be taken until he see the Neurologist. He feels his triggers are related to stress/anxiety. When he has to retain a lot of information or present, this seems to trigger the seizures. He is not driving at this time due to the seizures. 08/06/24 Patient has f/u with Neurologist to see if he can be released to drive again. Needs to be 3 months (90 days) without a seizure. Patient is reporting today at time of EVAL poor temper mill roller strength in his R (dominant) hand as well as R lateral elbow pain and discomfort when using tools at work. Patient was positive (R UE) for Maudsley?s Test, Cozen?s test & Chair lift test . Requested provider to add ICD-10 dx for Lateral epicondylitis due to positive special test Pain Assessment Pain Pain Yes Pain Comments R lateral elbow 4/10 Goniometric Comments Goniometric Comments Goniometric Comments R UE supination/pronation 30 degrees /FULL Wrist Extension 50 degrees Flexion is full L UE supination/pronation 72 degrees /FULL Wrist Extension 60 degrees Flexion is full Hand Pinch/Manager Camp Strength Hand Pinch/Manager Camp Strength Hand Pinch/Manager Camp Strength Left Hand,Right Hand Left Hand Manager Camp Strength Position 1 in Elbow 110 Flexion (lbs) Manager Camp Strength Position 2 in Elbow 145 Extension (lbs) Lateral Pinch Strength (lbs) 32 Three Point Pinch (lbs) 30 Tip Pinch Strength (lbs) 22 Right Hand Manager Camp Strength Position 1 in Elbow 95 Flexion (lbs) Manager Camp Strength Position 2 in Elbow 60 Extension (lbs) Lateral Pinch Strength (lbs) 30 Three Point Pinch (lbs) 24 Tip Pinch Strength (lbs) 16 Upper Extremity Special Tests Elbow Cozens Test Negative Left,Positive Right Tenosynovitis Wrist Finklestein Test Negative Left,Negative Right Ulnar Nerve Froment's Sign Negative Left,Negative Right Upper Extremity Special Tests Comments Comments Special Tests Maudsley?s test = Resisted third digit extension (R UE POSITIVE, L Negative) Cozen?s test = Resisted wrist extension with radial deviation and full pronation ( R UE POSITIVE, L Negative) Chair lift test = Lifting the back of a chair with a three- finger pinch (thumb, index long fingers) and the elbow fully extended (R UE POSITIVE, L Negative) OT Problems Problems Problems Decreased Strength,Decreased Range of Motion,Pain,Decreased Coordination,Lifting,Gripping ,Pinching Problems Comments Difficulty with small things ( threading a needle), unlacing his work boots Patient Potential Excellent Assessment Assessment Assessment 54-year-old male patient who has been seen by Ortho provider for multiple f/u visits (05/17, 06/14 & 07/05) after an initial injury/ accident (workman's comp) on : A large stable (900 lb stable) fell on him causing fall backwards hitting his head. He was wearing his hard hat. Since DOI, patient has undergone surgery on 12/27/23: Right clavicle open reduction and internal fixation. Possible he may undergo a knee surgery: right knee arthroscopic partial medial meniscectomy but currently working with PT on a conservative (nonoperative approach) which has been working. At times, patient still can experience knee pain , with LE fatigue after walking/standing all day at work. Of note: Regarding the head, he was still having seizure intermittently. He was seen in the emergency room where a CT and MRI of the brain were done and resulted to be relatively normal. His seizures present as he gets disoriented and confused. He has no recollection of the seizures. The witnesses of the seizures state they last 20- 30 seconds and he stutters and convulses. He is set to see a Neurologist on June 06, 2024 at [facility]. His last seizure was 05/11/2024 . The emergency room placed him on Keppra to be taken until he see the Neurologist. He feels his triggers are related to stress/anxiety. When he has to retain a lot of information or present, this seems to trigger the seizures. He is not driving at this time due to the seizures. 08/06/24 Patient has f/u with Neurologist to see if he can be released to drive again. Needs to be 3 months (90 days) without a seizure. Patient is reporting today at time of EVAL poor temper mill roller strength in his R (dominant) hand as well as R lateral elbow pain and discomfort when using tools at work. Patient was positive (R UE) for Maudsley?s Test, Cozen?s test & Chair lift test . Requested provider to add ICD-10 dx for Lateral epicondylitis due to positive special test. Patient is an excellent candidate for therapy, he was pleasant, alert, orientated, asked great questions in session, was an active listener to information presented to him and showed signs of motivation/ willingness to follow the presented protocol in POC. PLAN: lateral epicondylitis protocol, use of Ultrasound, Ionto, Manual treatment ( EULOGIO), development of an individualized home exercise program that progresses as patient is able to take on increased challenge and pain symptoms decrease with patient education on biomechanics/ ergonometric/activity modifications to decrease flare-ups. Occupational Therapy Treatment Plan - OP Potential Rehabilitation Potential Excellent Barriers Barriers to goal attainment Patient is working full time staff interpreter, not on any work restrictions for his R UE Set Goals Goals Set with Patient Yes Goals Goals 1. Patient will verbalize 3 activity modifications to decrease abusive/overloading of the tendons. -progressing, continue 2. Pt will demonstrate pain- free temper mill roller and pinch strength comparable to the uninvolved side in order to improve functional grasp, hold, reach, and lifting ability needed to complete self-care, leisure tasks, and work activities. - progressing, continue 3. Through activity participation in skilled therapy sessions, and consistency in performing a customized HEP, patient will improve capacity of tendons and muscles to manage load in order to have less pain with ADLs, work, leisure activities and IADLs. -progressing, continue 4. From EVAL score on The Upper Extremity Functional Index (UEFI) patient will have a change in score by >9 points in order to show significant change in UE function. -progressing, continue Target Date 12 weeks Treatment Plan Treatment Plan Evaluation,Edema Control, Iontophoresis,Joint Mobilization,Manual Therapy, Ultrasound,Therapeutic Exercise,Therapeutic Activities,Self Care/Home Management,Education Expected Frequency 1-2x Week Expected Duration 12 Home Program Home Program Home Program Initiated Home Program Specifics Tennis Elbow Stretches to the forearm extensors and flexors; Cross Friction Massage to the extensor carpi radialis (ECR) & Ice cup massage after repetitive/heavy activities or when sore/painful (PRN) Certification Certification Statement I Certify That: Therapy Services Provided, Therapy Plan Established, Therapy Plan Reviewed Certification Information Clinic ID # [id number] Initial Certification Date 07/24/24 Recertification Due Date 09/22/24 Provider Signature Required Yes Provider Signature Shows Agreement With POC & Medical Necessity Physician NPI Number Write NPI# Here Physician Comment/Change Comment or Changes Physician Signature & Date Requested Please Sign/Date Here
== END 2024-09-09 16:14 | disposition home or self-care (01) ==
PROVIDERS: Visit Provider Orthopaedic Surgery Sports Medicine
DX: S61.411D Laceration without foreign body of right hand, subsequent encounter (principal); R29.898 Other symptoms and signs involving the musculoskeletal system; M77.11 Lateral epicondylitis, right elbow; M25.561 Pain in right knee; Z74.09 Other reduced mobility; M62.81 Muscle weakness (generalized); Z51.89 Encounter for other specified aftercare
CPT/HCPCS: 97033; 97035; 97110; 97140; 97161; 97166

== ENCOUNTER 2024-11-01 09:44 | Outpatient (CLI) | payer OTHER, BC, SELFPAY ==
[2024-11-01 10:18] LABS: Albumin* 4.5 g/dL (3.3-5.0)
[2024-11-01 10:21] LABS: Alkaline Phosphatase* 79 U/L (40-150); Aspartate Amino Transferase* 27 U/L (12-35); Bilirubin Total* 0.5 mg/dL (0.1-1.5); Blood Urea Nitrogen* 14 mg/dL (7-30); Creatinine* 1.2 mg/dL (0.5-1.5); Estimated Glomerular Filt Rate 72 ml/min
[2024-11-01 10:22] LABS: Alanine Aminotransferase* 33 U/L (4-50)
[2024-11-03 04:57] LABS: Keppra (Levetiracetam) 13 ug/mL (10-40); Lamotrigine 4.8 ug/mL (3.0-15.0)
== END 2024-11-01 09:45 | disposition home or self-care (01) ==
LOC: LAB 09:44
PROVIDERS: Visit Provider Psychiatry & Neurology Clinical Neurophysiology
DX: G40.009 Localization-related (focal) (partial) idiopathic epilepsy and epileptic syndromes with seizures of localized onset, not intractable, without status epilepticus (principal)
CPT/HCPCS: 36415; 80076; 80175; 80177; 82565; 84520

== ENCOUNTER 2025-05-06 15:54 | Outpatient (CLI) | payer OTHER, BC, SELFPAY ==
[2025-05-06 16:43] LABS: Albumin* 4.3 g/dL (3.3-5.0)
[2025-05-06 16:46] LABS: Alanine Aminotransferase* 29 U/L (4-50); Alkaline Phosphatase* 82 U/L (40-150); Aspartate Amino Transferase* 30 U/L (12-35); Bilirubin Direct* 0.2 mg/dL (0.0-0.5); Bilirubin Total* 0.3 mg/dL (0.1-1.5); Blood Urea Nitrogen* 19 mg/dL (7-30); Creatinine* 1.3 mg/dL (0.5-1.5); Estimated Glomerular Filt Rate 65 ml/min; Total Protein* 6.9 g/dL (6.0-8.3)
[2025-05-08 19:22] LABS: Keppra (Levetiracetam) 19 ug/mL (10-40); Lamotrigine 5.3 ug/mL (3.0-15.0)
== END 2025-05-06 15:55 | disposition home or self-care (01) ==
LOC: LAB 16:06
PROVIDERS: Visit Provider Psychiatry & Neurology Clinical Neurophysiology
DX: Z79.899 Other long term (current) drug therapy (principal)
CPT/HCPCS: 36415; 80076; 80175; 80177; 82565; 84520